=== PATIENT | male | born 1940 | race Caucasian/White ===

== ENCOUNTER 2022-01-03 09:04 | Emergency (ER) | payer OTHER, MEDICARE, BC ==
[~2022-01-03] VITALS: Ht 175.3 cm; Wt 78.0 kg
[2022-01-03 11:00] VITALS: BP 129/65
[2022-01-03] MEDS ORDERED: PROTONIX40 M2 PO (11:10)
[2022-01-03] MEDS ORDERED: KEPPRA1000 MG PO (11:10)
[2022-01-03] MEDS ORDERED: GABAPENTIN100 MG PO (11:10)
[2022-01-03] MEDS ORDERED: LASIX 20 MG TAB20 MG PO (11:11)
[2022-01-03] MEDS ORDERED: TAMSULOSIN HCL0.4 MG PO (11:11)
[2022-01-03] MEDS ORDERED: LIPITOR20 M1 PO (11:11)
[2022-01-03] MEDS ORDERED: STERAPRED DS10 MG PO (11:12)
[2022-01-03] MEDS ORDERED: CLOPIDOGREL75 MG PO (11:12)
[2022-01-03] MEDS ORDERED: POTASSIUM GLUC595 MG PO (11:12)
[2022-01-03] MEDS ORDERED: VITAMIN D325 MCG PO (11:13)
== END 2022-01-03 11:01 | disposition home or self-care (01) | DRG 179 ==
LOC: ED 09:04
DX: U07.1 COVID-19 (principal); I10 Essential (primary) hypertension

== ENCOUNTER 2022-01-07 10:06 | Emergency (ER) | payer OTHER, MEDICARE, BC ==
[~2022-01-07] VITALS: Ht 175.3 cm; Wt 90.0 kg
[~2022-01-07 10:06] MED LIST: CLOPIDOGREL75 MG PO; GABAPENTIN100 MG PO; KEPPRA1000 MG PO; LASIX 20 MG TAB20 MG PO; LIPITOR20 M1 PO; POTASSIUM GLUC595 MG PO; PROTONIX40 M2 PO; STERAPRED DS10 MG PO; TAMSULOSIN HCL0.4 MG PO; VITAMIN D325 MCG PO
[2022-01-07] MEDS ORDERED: ASPIRIN81 MG PO (10:42)
[2022-01-07 11:41] VITALS: BP 152/72
== END 2022-01-07 12:10 | disposition home or self-care (01) | DRG 605 ==
LOC: ED 10:06
DX: S81.811A Laceration without foreign body, right lower leg, initial encounter (principal); I10 Essential (primary) hypertension; G35 Multiple sclerosis; X58.XXXA Exposure to other specified factors, initial encounter

== ENCOUNTER 2022-03-29 16:25 | Observation (INO) | payer OTHER, MEDICARE, BC ==
[~2022-03-29] VITALS: Ht 175.3 cm; Wt 98.0 kg
[2022-03-29] VITALS (7 sets, daily range): BP systolic 102–164; BP diastolic 56–110
[~2022-03-29 16:25] MED LIST changes: +ASPIRIN81 MG PO
--- NOTE | 2022-03-29 17:34 | NUR ---
PATIENT TO ROOM 12
--- NOTE | 2022-03-29 18:28 | NUR ---
Reassessment of patient completed. No distress noted.
[2022-03-29 18:54] LABS: HEMATOCRIT 41.7 % (39.0-50.0); IMMATURE GRANULOCYTES 0.4 % (0.0-5.0); MEAN CELL VOLUME 95.2 fL CALC (80.0-100.0); MEAN CORPUSCULAR HGB 29.7 pG CALC (26.0-32.0); MEAN CORPUSCULAR HGB CONC 31.2 g/dL CAL (32.0-36.0); NEUT# 12.08 thou/uL (1.82-7.42); RED BLOOD COUNT 4.38 mill/uL (4.70-6.10); RED CELL DISTRI WIDTH 13.7 % (11.5-15.5)
--- NOTE | 2022-03-29 18:57 | NUR ---
TRANSITION OF CARE REPORT TO CHRIS ARAYA
[2022-03-29 18:59] LABS: ALBUMIN 3.7 g/dL (3.2-5.0); ALKALINE PHOSPHATASE 307 u/l (38-126); ANION GAP 10 (6-22 (CALC)); BILIRUBIN, TOTAL 1.1 mg/dL (0.0-1.4); BUN 16 mg/dL (8-23); BUN/CREATININE RATIO 18 (12-20 (CALC)); CARBON DIOXIDE 25 mmol/l (22-30); CHLORIDE 105 mmol/l (95-108); CREATININE 0.9 mg/dL (0.7-1.3); GFR > 60 ML/MIN (>=60 (CALC)); GFR FOR AFR.AMER. > 60 ML/MIN (>=60 (CALC)); SGOT/AST 59 u/l (19-48); SODIUM 137 mmol/l (137-146); TOTAL PROTEIN 6.7 g/dL (6.3-8.2)
[2022-03-29 19:21] LABS: URINE BILIRUBIN - DIPSTICK NEGATIVE (NEGATIVE); URINE BLOOD DIPSTICK SMALL (NEGATIVE); URINE COLOR YELLOW; URINE GLUCOSE - DIPSTICK NEGATIVE (NEGATIVE); URINE KETONE NEGATIVE (NEGATIVE); URINE LEUK ESTERASE MODERATE (NEGATIVE); URINE NITRITE - DIPSTICK POSITIVE (Negative); URINE PROTEIN - DIPSTICK TRACE mg/dL (NEG-TRACE); URINE SPECIFIC GRAVITY 1.025; URINE UROBILINOGEN - DIPSTICK 0.2 E.U./dL (0.2)
[2022-03-29 19:26] LABS: URINE BACTERIA MANY hpf; URINE WBC 20-50 WBC/hpf (0-5)
--- NOTE | 2022-03-29 20:55 | NUR ---
PT SPILLED URINE WHEN ATTEMPTING TO USE URINAL. ASSISTED PATIENT WITH CLOTHING CHANGE. SHEETS CHANGED ON STRETCHER. CALL LIGHT WITHIIN REACH
--- NOTE | 2022-03-29 21:57 | NUR ---
RN CALLED TO GIVE REPORT, NURSE UNAVAILABLE. WILL CALL BACK
--- NOTE | 2022-03-29 22:35 | NUR ---
PT ARRIVED TO ICU BED 4 VIA STRETCHER ACCOMPANIED BY ER NURSE, PT ALERT AND ORIENTED X3, ASSISTED SELF TO BED FROM STRETCHER, PT TOLERATED WELL. ORIENTED PT TO ROOM AND CALL LIGHT, DISCUSSED POC, PT VERBALIZED UNDERSTANDING. NOTED MUTIPLE BLISTERS AND BRUISING TO BUE AND BLE EXTREMITIES, SCABBED AREA TO HEAD PT STATES HE HIT HIS HEAD ON THE BUCKNER OF A VEHICLE HE WAS WORKING ON.+1 PITTING EDEMA TO BLE, PT HAS A HX OF SEIZURES, PRECAUTIONS IN PLACE. IV FLUSHED TO R WRIST. ADMISSION ASSESSMENT COMPLETED, CALL LIGHT IN REACH,CONTINUE TO MONITOR.
--- NOTE | 2022-03-29 23:44 | NUR ---
ASSISTED PT TO SIDE OF BED FOR URINAL, 50CC YELLOW CLOUDY URINE NOTED. PT ASSISTED BACK TO BED, CALL LIGHT IN REACH,CONTINUE TO MONITOR.
[2022-03-30] VITALS (7 sets, daily range): BP systolic 134–153; BP diastolic 50–70
--- NOTE | 2022-03-30 04:00 | NUR ---
PT ASSISTED TO STAND FOR URINAL, TOLERATED WELL.ASSISTED BACK TO BED, CALL LIGHT IN REACH,CONTINUE TO MONITOR.
[2022-03-30 04:46] LABS: HEMATOCRIT 38.1 % (39.0-50.0); HEMOGLOBIN 11.8 g/dl (14.0-18.0); MEAN CELL VOLUME 94.8 fL CALC (80.0-100.0); MEAN CORPUSCULAR HGB 29.4 pG CALC (26.0-32.0); RED BLOOD COUNT 4.02 mill/uL (4.70-6.10); RED CELL DISTRI WIDTH 13.8 % (11.5-15.5)
[2022-03-30 05:16] LABS: ANION GAP 9 (6-22 (CALC)); BUN 15 mg/dL (8-23); BUN/CREATININE RATIO 19 (12-20 (CALC)); CARBON DIOXIDE 25 mmol/l (22-30); CHLORIDE 108 mmol/l (95-108); CREATININE 0.8 mg/dL (0.7-1.3); GFR > 60 ML/MIN (>=60 (CALC)); GFR FOR AFR.AMER. > 60 ML/MIN (>=60 (CALC)); MAGNESIUM 1.7 mg/dL (1.6-2.3); POTASSIUM 3.7 mmol/l (3.5-5.1); SODIUM 137 mmol/l (137-146)
--- NOTE | 2022-03-30 07:20 | NUR ---
pt awake in bed; no apparent distress noted; pt offers no complaints; assessment completed at this time; pt alert to person and place; states May as the month; pt admits to some confusion lately; pt denies pain; no n/v noted per data analyst report writer; resp even and unlabored; lungs clear; skin color wnl; ra; hr reg; wk pedal pulses; edema noted to ble; sr/pvc on monitor; abd soft with bs present; no bm noted per data analyst report writer; pt voiding dk aly urine with trouble starting stream; urinal at bedside; pt does require assistance with urinal; #20 flushed and patent to rw; no redness or edema noted at site; discoloration noted to ble; multiple scabs/abrasions noted throughout body; multiple bandaids noted to lower legs; plan of care/ am meds explained; call light within reach; will continue to monitor
--- NOTE | 2022-03-30 08:00 | NUR ---
sitting at he side of the bed eating breakfast; offers no complaints; iv intact; will continue to monitor
--- NOTE | 2022-03-30 08:37 | NUR ---
assist to bsc; linens changed for small stool incont; partial bath provided; back to bed; will continue to monitor
--- NOTE | 2022-03-30 10:00 | NUR ---
pt resting in bed with eyes closed; no apparent distress noted; pt offers no complaints; iv intact; sr pvc on monitor; call light within reach; will continue to monitor
[2022-03-30] MEDS ORDERED: K-99 PO (10:01)
[2022-03-30] MEDS ORDERED: MULTI VIT PO (10:02)
[2022-03-30] MEDS ORDERED: ALLOPURINOL100 MG PO (10:03)
[2022-03-30] MEDS ORDERED: AMLODIPINE BES2.5 MG PO (10:03)
[2022-03-30] MEDS ORDERED: DOCUSATE CAL240 MG PO (10:03)
--- NOTE | 2022-03-30 10:50 | NUR ---
Dr Martinez present at bedside to assess pt and discuss plan of care;
--- NOTE | 2022-03-30 11:20 | NUR ---
jingle writer assisted this pt to bsc; able to void 75cc lay urine; bladder scanned for 205cc urine post void; notified
--- NOTE | 2022-03-30 12:00 | NUR ---
awake sitting at the side of the bed eating lunch; no apparent distress noted; pt offers no complaints; sr on monitor; iv intact; call light within reach; will continue to monitor
--- NOTE | 2022-03-30 12:29 | NUR ---
call placed to daughter Lisandra; daughter updated on pt condition and plan of care
--- NOTE | 2022-03-30 14:00 | NUR ---
awake in bed; offers no complaints; iv intact; sr on monitor; deny needs; call light within reach; will continue to monitor
--- NOTE | 2022-03-30 15:21 | NUR ---
assist to bsc; voided 75cc aly urine; bladder scanned for 281cc urine post void;
--- NOTE | 2022-03-30 16:00 | NUR ---
pt assisted to bsc for urine; voided approx 100cc aly urine; back to bed; offers no complaints; iv intact; sr on monitor; deny needs; call light within reach; will continue to monitor
--- NOTE | 2022-03-30 18:02 | NUR ---
pt awake conversing on cell phone; no apparent distress noted; pt offers no complaints; pt speaking wtih daughter Lisandra; both pt and daughter explained transfer to med surg this tonight; sr pvc on monitor; iv intact; call light within reach;
--- NOTE | 2022-03-30 18:48 | NUR ---
report to Yareli Rodriguez LPN; pt to transfer to [facility]; tele in room
--- NOTE | 2022-03-30 19:30 | NUR ---
PT BROUGHT TO MS2 VIA WHEELCHAIR BELONGINGS AND ROLLING WALKER. PT TOLERATED WELL, AMBULATED TO BED WITH STEADY GAIT, NO SIGNS OF DISTRESS NOTED, RESP EVEN AND UNLABORED. ORIENTED PT TO ROOM AND CALL LIGHT, VITALS OBTAINED. ASSESSMENT COMPLETED, NOTED DISCOLORATION TO EXTREMITIES, SCABS AND BANDAIDS NOTED TO BLE, +1 PITTING EDEMA TO BLE GREATER ON RIGHT. NOTED REDDENED 2ND TOE TO RIGHT FOOT SKIN INTACT. CALL LIGHT IN REACH,CONTINUE TO MONITOR.
--- NOTE | 2022-03-30 20:00 | NUR ---
PT ASSISTED TO STAND AT BEDSIDE TO USE URINAL, PT HAD 50CC OF RIAN URINE, BLADDER SCANNED ONCE BACK IN BED, PER BLADDER SCANNER PT RETAINED 97ML. NO C/O OF PAIN OR BLADDER DISTENTION NOTED. CALL LIGHT IN REACH,CONTINUE TO MONITOR.
--- NOTE | 2022-03-30 21:00 | NUR ---
PT ASSISTED TO STAND AT BEDSIDE FOR USE OF URINAL, PT HAD ANOTHER 50CC OF RIAN URINE, ONCE BACK IN BED PT BLADDER SCANNED, PER BLADDER SCANNER 30CC POST VOID RESIDUAL. PT VOICES NO NEEDS OR COMPLAINTS AT THIS TIME. CALL LIGHT IN REACH,CONTINUE TO MONITOR.
--- NOTE | 2022-03-31 | NUR ---
PT ASSISTED TO STAND FOR USE OF URINAL PT VOIDED 100CC OR RIAN URINE, BLADDER SCANNED POST VOID RESIDUAL 48ML, PT VOICES NO NEEDS OR COMPLAINTS AT THIS TIME, CALL LIGHT IN REACH,CONTINUE TO MONITOR.
[2022-03-31 00:27] VITALS: BP 128/49
--- NOTE | 2022-03-31 03:30 | NUR ---
PT AMBULATING IN ROOM WITH PERSONAL WALKER, PT VOIDED 100CC RIAN URINE, BLADDER SCANNED 0 ML. BED ALARM PLACED, CALL LIGHT IN REACH,CONTINUE TO MONITOR.
[2022-03-31 04:58] VITALS: BP 154/66
[2022-03-31 05:04] LABS: HEMATOCRIT 39.9 % (39.0-50.0); HEMOGLOBIN 12.2 g/dl (14.0-18.0); MEAN CELL VOLUME 97.6 fL CALC (80.0-100.0); MEAN CORPUSCULAR HGB 29.8 pG CALC (26.0-32.0); MEAN CORPUSCULAR HGB CONC 30.6 g/dL CAL (32.0-36.0); RED BLOOD COUNT 4.09 mill/uL (4.70-6.10); RED CELL DISTRI WIDTH 13.9 % (11.5-15.5)
[2022-03-31 05:26] LABS: BUN 16 mg/dL (8-23); BUN/CREATININE RATIO 21 (12-20 (CALC)); CARBON DIOXIDE 21 mmol/l (22-30); CHLORIDE 110 mmol/l (95-108); CREATININE 0.8 mg/dL (0.7-1.3); GFR > 60 ML/MIN (>=60 (CALC)); GFR FOR AFR.AMER. > 60 ML/MIN (>=60 (CALC)); MAGNESIUM 1.9 mg/dL (1.6-2.3); SODIUM 137 mmol/l (137-146)
[2022-03-31 05:27] LABS: ANION GAP 11 (6-22 (CALC)); POTASSIUM 4.8 mmol/l (3.5-5.1)
--- NOTE | 2022-03-31 07:30 | NUR ---
SHIFT CHANGE REPORT, PT AWAKE ALERT AND ORIENTED TO PLACE AND PERSON, SITTING UP IN RECLINER, NO C/O DISCOMFORT, TELE MONITOR IN PLACE, CALL GOEL IN REACH.
[2022-03-31 07:39] VITALS: BP 120/50
--- NOTE | 2022-03-31 10:40 | NUR ---
NEW #22G RFA STARTED, SITE PATENT. IV ABX INFUSING WITH EASE.
[2022-03-31 10:46] VITALS: BP 128/60
[2022-03-31] MEDS ORDERED: LEVOFLOXACIN250 M1 PO (11:41)
--- NOTE | 2022-03-31 14:02 | NUR ---
Discharge instructions given. Patient verbalizes understanding of same. Discharged in good condition via Wheelchair to Home with family. All belongings sent with pt.
== END 2022-03-31 14:02 | disposition home or self-care (01) | DRG 690 ==
LOC: ED 16:25 → ED-I 20:00 → ED 20:08 → ICU 20:09 → MS2 03-30 19:00
PROVIDERS: Nurse Practitioner; ADMIT Hospitalist; ATTEND Hospitalist
DX: N39.0 Urinary tract infection, site not specified (principal); L03.031 Cellulitis of right toe; I10 Essential (primary) hypertension; G35 Multiple sclerosis; N31.9 Neuromuscular dysfunction of bladder, unspecified; I73.9 Peripheral vascular disease, unspecified; S81.802A Unspecified open wound, left lower leg, initial encounter; S81.801A Unspecified open wound, right lower leg, initial encounter; B96.20 Unspecified Escherichia coli [E. coli] as the cause of diseases classified elsewhere; B96.5 Pseudomonas (aeruginosa) (mallei) (pseudomallei) as the cause of diseases classified elsewhere; X58.XXXA Exposure to other specified factors, initial encounter; Z20.822 Contact with and (suspected) exposure to COVID-19
CPT/HCPCS: G0378; J1650

== ENCOUNTER 2022-07-24 15:11 | Emergency (ER) | payer OTHER, MEDICARE ==
[~2022-07-24] VITALS: Ht 182.9 cm; Wt 86.0 kg
[~2022-07-24 15:11] MED LIST changes: +ALLOPURINOL100 MG PO; +AMLODIPINE BES2.5 MG PO; +DOCUSATE CAL240 MG PO; +K-99 PO; +LEVOFLOXACIN250 M1 PO; +MULTI VIT PO
[2022-07-24 15:15] VITALS: BP 128/66
[2022-07-24 17:31] VITALS: BP 150/77
[2022-07-24] MEDS ORDERED: MUPIROCIN21 TOP (17:52)
[2022-07-24 18:20] VITALS: BP 153/59
[2022-07-24 18:26] VITALS: BP 153/59
== END 2022-07-24 18:28 | disposition home or self-care (01) | DRG 536 ==
LOC: ED 15:11
DX: S32.592A Other specified fracture of left pubis, initial encounter for closed fracture (principal); S80.812A Abrasion, left lower leg, initial encounter; I10 Essential (primary) hypertension; G35 Multiple sclerosis; W01.0XXA Fall on same level from slipping, tripping and stumbling without subsequent striking against object, initial encounter; Y92.009 Unspecified place in unspecified non-institutional (private) residence as the place of occurrence of the external cause

== ENCOUNTER 2022-08-04 10:06 | Emergency (ER) | payer OTHER, MEDICARE ==
[~2022-08-04] VITALS: Ht 182.9 cm; Wt 91.2 kg
[2022-08-04] VITALS (15 sets, daily range): BP systolic 86–142; BP diastolic 42–76
[~2022-08-04 10:06] MED LIST changes: +MUPIROCIN21 TOP
[2022-08-04 10:53] LABS: HEMATOCRIT 36.7 % (39.0-50.0); HEMOGLOBIN 11.9 g/dl (14.0-18.0); IMMATURE GRANULOCYTES 0.2 % (0.0-5.0); MEAN CORPUSCULAR HGB 29.2 pG CALC (26.0-32.0); MEAN CORPUSCULAR HGB CONC 32.4 g/dL CAL (32.0-36.0); NEUT# 7.81 thou/uL (1.82-7.42); RED BLOOD COUNT 4.08 mill/uL (4.70-6.10); RED CELL DISTRI WIDTH 16.1 % (11.5-15.5)
[2022-08-04 11:14] LABS: ALBUMIN 3.3 g/dL (3.2-5.0); ALKALINE PHOSPHATASE 300 u/l (38-126); ANION GAP 12 (6-22 (CALC)); BILIRUBIN, TOTAL 0.7 mg/dL (0.0-1.4); BUN 20 mg/dL (8-23); BUN/CREATININE RATIO 24 (12-20 (CALC)); CARBON DIOXIDE 25 mmol/l (22-30); CHLORIDE 110 mmol/l (95-108); CREATININE 0.8 mg/dL (0.7-1.3); GFR FOR AFR.AMER. > 60 ML/MIN (>=60 (CALC)); GFR OTHER RACES > 60 ML/MIN (>=60 (CALC)); POTASSIUM 4.1 mmol/l (3.5-5.1); SGOT/AST 37 u/l (19-48); SODIUM 143 mmol/l (137-146); TOTAL PROTEIN 6.2 g/dL (6.3-8.2)
[2022-08-04] MEDS ORDERED: BACTRIM DS1 TAB PO ×2 (12:19→14:51)
[2022-08-04] MEDS ORDERED: CEPHALEXIN500 M1 PO ×2 (12:19→14:51)
[2022-08-04] MEDS ORDERED: TRAMADOL HYDROC50 M1 PO ×2 (12:21→14:51)
[2022-08-04] MEDS ORDERED: MUPIROCIN21 TOP (14:51)
== END 2022-08-04 14:04 | disposition home or self-care (01) | DRG 603 ==
LOC: ED 10:06
PROVIDERS: Family Medicine
DX: L03.116 Cellulitis of left lower limb (principal); S81.812A Laceration without foreign body, left lower leg, initial encounter; I10 Essential (primary) hypertension; E78.5 Hyperlipidemia, unspecified; G35 Multiple sclerosis; B95.2 Enterococcus as the cause of diseases classified elsewhere; B96.5 Pseudomonas (aeruginosa) (mallei) (pseudomallei) as the cause of diseases classified elsewhere; W19.XXXA Unspecified fall, initial encounter

== ENCOUNTER 2023-02-19 08:49 | Observation (INO) | payer OTHER, MEDICARE ==
[~2023-02-19] VITALS: Ht 182.9 cm; Wt 86.0 kg
[2023-02-19] VITALS (27 sets, daily range): BP systolic 100–263; BP diastolic 60–223
[~2023-02-19 08:49] MED LIST changes: +BACTRIM DS1 TAB PO; +CEPHALEXIN500 M1 PO; +TRAMADOL HYDROC50 M1 PO
[2023-02-19 12:56] LABS: BASO% 0.7 % (0-3); HEMATOCRIT 40.5 % (39.0-50.0); HEMOGLOBIN 12.6 g/dl (14.0-18.0); IMMATURE GRANULOCYTES 0.4 % (0.0-5.0); LYMPH% 24.3 % (15-41); MEAN CELL VOLUME 95.3 fL CALC (80.0-100.0); MEAN CORPUSCULAR HGB 29.6 pG CALC (26.0-32.0); MEAN CORPUSCULAR HGB CONC 31.1 g/dL CAL (32.0-36.0); MONO% 9.2 % (2-13); NEUT# 5.16 thou/uL (1.82-7.42); NEUT% 62.4 % (42-76); RED BLOOD COUNT 4.25 mill/uL (4.70-6.10); RED CELL DISTRI WIDTH 14.9 % (11.5-15.5)
[2023-02-19 13:12] LABS: ALBUMIN 3.9 g/dL (3.2-5.0); ALKALINE PHOSPHATASE 259 u/l (38-126); ANION GAP 11 (6-22 (CALC)); BILIRUBIN, TOTAL 0.6 mg/dL (0.2-1.3); BUN 20 mg/dL (8-23); BUN/CREATININE RATIO 27 (12-20 (CALC)); CARBON DIOXIDE 27 mmol/l (22-30); CHLORIDE 109 mmol/l (95-108); CREATININE 0.7 mg/dL (0.7-1.3); GFR FOR AFR.AMER. > 60 ML/MIN (>=60 (CALC)); GFR OTHER RACES > 60 ML/MIN (>=60 (CALC)); POTASSIUM 4.3 mmol/l (3.5-5.1); SGOT/AST 44 u/l (19-48); SODIUM 142 mmol/l (137-146); TOTAL PROTEIN 7.2 g/dL (6.3-8.2)
[2023-02-20 04:11] VITALS: BP 138/60
[2023-02-20 05:41] VITALS: BP 157/66
[2023-02-20 06:30] LABS: HEMATOCRIT 36.9 % (39.0-50.0); HEMOGLOBIN 11.7 g/dl (14.0-18.0); MEAN CELL VOLUME 93.7 fL CALC (80.0-100.0); MEAN CORPUSCULAR HGB 29.7 pG CALC (26.0-32.0); MEAN CORPUSCULAR HGB CONC 31.7 g/dL CAL (32.0-36.0); RED BLOOD COUNT 3.94 mill/uL (4.70-6.10); RED CELL DISTRI WIDTH 14.9 % (11.5-15.5)
[2023-02-20 06:37] LABS: ALBUMIN 3.4 g/dL (3.2-5.0); ALKALINE PHOSPHATASE 228 u/l (38-126); ANION GAP 12 (6-22 (CALC)); BILIRUBIN, TOTAL 0.4 mg/dL (0.2-1.3); BUN 16 mg/dL (8-23); BUN/CREATININE RATIO 23 (12-20 (CALC)); CARBON DIOXIDE 26 mmol/l (22-30); CHLORIDE 108 mmol/l (95-108); CREATININE 0.7 mg/dL (0.7-1.3); GFR FOR AFR.AMER. > 60 ML/MIN (>=60 (CALC)); GFR OTHER RACES > 60 ML/MIN (>=60 (CALC)); MAGNESIUM 1.9 mg/dL (1.6-2.3); SGOT/AST 40 u/l (19-48); SODIUM 142 mmol/l (137-146); TOTAL PROTEIN 6.3 g/dL (6.3-8.2)
[2023-02-20 09:41] VITALS: BP 140/62
[2023-02-20 11:20] LABS: URINE BILIRUBIN - DIPSTICK NEGATIVE (NEGATIVE); URINE BLOOD DIPSTICK NEGATIVE (NEGATIVE); URINE COLOR YELLOW; URINE GLUCOSE - DIPSTICK NEGATIVE (NEGATIVE); URINE KETONE TRACE mg/dL (NEGATIVE); URINE LEUK ESTERASE NEGATIVE (NEGATIVE); URINE PROTEIN - DIPSTICK NEGATIVE (NEG-TRACE); URINE UROBILINOGEN - DIPSTICK 0.2 E.U./dL (0.2)
[2023-02-20 11:25] LABS: URINE NITRITE - DIPSTICK NEGATIVE (Negative)
[2023-02-20 14:11] VITALS: BP 142/64
[2023-02-20 19:25] VITALS: BP 137/60
[2023-02-21] VITALS (9 sets, daily range): BP systolic 138–156; BP diastolic 63–73
[2023-02-21 05:46] LABS: BASO% 0.5 % (0-3); HEMATOCRIT 37.5 % (39.0-50.0); IMMATURE GRANULOCYTES 0.2 % (0.0-5.0); MEAN CELL VOLUME 94.2 fL CALC (80.0-100.0); MEAN CORPUSCULAR HGB 30.2 pG CALC (26.0-32.0); MONO% 11.4 % (2-13); NEUT# 4.94 thou/uL (1.82-7.42); NEUT% 59.9 % (42-76); RED BLOOD COUNT 3.98 mill/uL (4.70-6.10); RED CELL DISTRI WIDTH 14.7 % (11.5-15.5)
[2023-02-21 05:51] LABS: ALBUMIN 3.2 g/dL (3.2-5.0); ALKALINE PHOSPHATASE 225 u/l (38-126); ANION GAP 10 (6-22 (CALC)); BUN 13 mg/dL (8-23); BUN/CREATININE RATIO 21 (12-20 (CALC)); CARBON DIOXIDE 28 mmol/l (22-30); CHLORIDE 107 mmol/l (95-108); CREATININE 0.7 mg/dL (0.7-1.3); GFR FOR AFR.AMER. > 60 ML/MIN (>=60 (CALC)); GFR OTHER RACES > 60 ML/MIN (>=60 (CALC)); POTASSIUM 4.1 mmol/l (3.5-5.1); SGOT/AST 35 u/l (19-48); SODIUM 141 mmol/l (137-146); TOTAL PROTEIN 5.9 g/dL (6.3-8.2)
[2023-02-21 05:53] LABS: BILIRUBIN, TOTAL 0.6 mg/dL (0.2-1.3)
[2023-02-21 18:21] LABS: CALCULATED LDLCHOLESTEROL 63 mg/dL (62-129 (CALC)); CHOLESTEROL HDL RATIO 3.1 (<4.4 (CALC)); HDL CHOLESTEROL 38 mg/dL (39.0-59.0); TOTAL CHOLESTEROL 118 mg/dl (0-199); TRIGLYCERIDES REFLEX TO dLDL 87 mg/dl (30-149); VLDL CHOLESTROL 17 mg/dl (0-38 (CALC))
[2023-02-22 05:17] VITALS: BP 140/69
[2023-02-22 07:03] LABS: ALBUMIN 3.3 g/dL (3.2-5.0); ALKALINE PHOSPHATASE 229 u/l (38-126); ANION GAP 13 (6-22 (CALC)); BILIRUBIN, TOTAL 0.9 mg/dL (0.2-1.3); BUN 14 mg/dL (8-23); BUN/CREATININE RATIO 21 (12-20 (CALC)); CARBON DIOXIDE 23 mmol/l (22-30); CHLORIDE 109 mmol/l (95-108); CREATININE 0.6 mg/dL (0.7-1.3); GFR FOR AFR.AMER. > 60 ML/MIN (>=60 (CALC)); GFR OTHER RACES > 60 ML/MIN (>=60 (CALC)); POTASSIUM 4.1 mmol/l (3.5-5.1); SGOT/AST 37 u/l (19-48); SODIUM 141 mmol/l (137-146); TOTAL PROTEIN 6.2 g/dL (6.3-8.2)
[2023-02-22 07:07] LABS: BASO% 0.7 % (0-3); HEMOGLOBIN 12.2 g/dl (14.0-18.0); IMMATURE GRANULOCYTES 0.1 % (0.0-5.0); LYMPH% 20.2 % (15-41); MEAN CELL VOLUME 93.6 fL CALC (80.0-100.0); MEAN CORPUSCULAR HGB CONC 32.1 g/dL CAL (32.0-36.0); NEUT# 5.24 thou/uL (1.82-7.42); RED BLOOD COUNT 4.06 mill/uL (4.70-6.10); RED CELL DISTRI WIDTH 14.6 % (11.5-15.5)
[2023-02-22 09:14] VITALS: BP 143/66
== END 2023-02-22 19:30 | DRG 312 ==
LOC: ED 08:49 → ED-I 16:20 → ED 16:55 → MS2 16:56
PROVIDERS: Emergency Medicine; Nurse Practitioner Family; Psychiatry & Neurology Neurology; ADMIT Internal Medicine; ATTEND Internal Medicine
DX: I95.1 Orthostatic hypotension (principal); G81.94 Hemiplegia, unspecified affecting left nondominant side; R42 Dizziness and giddiness; E86.1 Hypovolemia; G35 Multiple sclerosis; I10 Essential (primary) hypertension; G40.909 Epilepsy, unspecified, not intractable, without status epilepticus; T50.996A Underdosing of other drugs, medicaments and biological substances, initial encounter; Z91.128 Patient's intentional underdosing of medication regimen for other reason; Z20.822 Contact with and (suspected) exposure to COVID-19
CPT/HCPCS: J1650; Q9967

== ENCOUNTER 2023-11-19 16:46 | Inpatient (IN) | payer OTHER, MEDICARE ==
[~2023-11-19] VITALS: Ht 182.9 cm; Wt 87.4 kg
[2023-11-19] VITALS (19 sets, daily range): BP systolic 87–121; BP diastolic 59–84
[~2023-11-19 16:46] MED LIST changes: +KEFLEX500 MG PO; +LEVAQUIN750 M1 PO; +MIRALAX17 GM PO; +PROSCAR5 MG PO; +RISPERDAL0.5 MG PO; +TOPROL XL25 MG PO; +TOPROL XL50 MG PO; +XARELTO10 MG PO; +[UNRECOGNIZED DRUG - OTHER] TOP
[2023-11-19 17:19] LABS: BASO% 0.5 % (0-3); EOS% 2.9 % (0-8); HEMATOCRIT 39.8 % (39.0-50.0); HEMOGLOBIN 11.9 g/dl (14.0-18.0); IMMATURE GRANULOCYTES 0.3 % (0.0-5.0); LYMPH% 26.2 % (15-41); MEAN CELL VOLUME 92.3 fL CALC (80.0-100.0); MEAN CORPUSCULAR HGB 27.6 pG CALC (26.0-32.0); MEAN CORPUSCULAR HGB CONC 29.9 g/dL CAL (32.0-36.0); MONO% 13.2 % (2-13); NEUT# 3.7 thou/uL (1.82-7.42); NEUT% 56.9 % (42-76); RED BLOOD COUNT 4.31 mill/uL (4.70-6.10); RED CELL DISTRI WIDTH 15.8 % (11.5-15.5)
[2023-11-19 17:26] LABS: PROTHROMBIN TIME 16.3 SECONDS (9.0-12.5)
[2023-11-19 17:31] LABS: INTERNATIONAL NORMALIZED RATIO 1.8 RATIO (0.7-1.3)
[2023-11-19 17:53] LABS: ALBUMIN 3.2 g/dL (3.2-5.0); ALKALINE PHOSPHATASE 150 u/l (38-126); ANION GAP 16 (6-22 (CALC)); BILIRUBIN, TOTAL 0.8 mg/dL (0.2-1.3); BUN 37 mg/dL (8-23); BUN/CREATININE RATIO 36 (12-20 (CALC)); CHLORIDE 116 mmol/l (95-108); GFR FOR AFR.AMER. > 60 ML/MIN (>=60 (CALC)); GFR OTHER RACES > 60 ML/MIN (>=60 (CALC)); POTASSIUM 3.8 mmol/l (3.5-5.1); SGOT/AST 45 u/l (19-48); SODIUM 149 mmol/l (137-146); TOTAL PROTEIN 6.1 g/dL (6.3-8.2)
[2023-11-19 17:55] LABS: CARBON DIOXIDE 21 mmol/l (22-30)
[2023-11-19] MEDS ORDERED: IPRATROPIU0.5 MG/3 M IN (18:28)
[2023-11-20] VITALS (60 sets, daily range): BP systolic 36–148; BP diastolic 21–129
[2023-11-20 08:01] LABS: BASO% 0.3 % (0-3); HEMATOCRIT 38.5 % (39.0-50.0); HEMOGLOBIN 11.7 g/dl (14.0-18.0); IMMATURE GRANULOCYTES 0.3 % (0.0-5.0); LYMPH% 17.9 % (15-41); MEAN CELL VOLUME 92.5 fL CALC (80.0-100.0); MEAN CORPUSCULAR HGB 28.1 pG CALC (26.0-32.0); MEAN CORPUSCULAR HGB CONC 30.4 g/dL CAL (32.0-36.0); MONO% 1.8 % (2-13); NEUT# 2.68 thou/uL (1.82-7.42); NEUT% 79.7 % (42-76); RED BLOOD COUNT 4.16 mill/uL (4.70-6.10); RED CELL DISTRI WIDTH 15.9 % (11.5-15.5)
[2023-11-20 08:10] LABS: ALBUMIN 3.1 g/dL (3.2-5.0); ALKALINE PHOSPHATASE 148 u/l (38-126); ANION GAP 19 (6-22 (CALC)); BILIRUBIN, TOTAL 1.1 mg/dL (0.2-1.3); BUN 39 mg/dL (8-23); BUN/CREATININE RATIO 31 (12-20 (CALC)); CHLORIDE 118 mmol/l (95-108); CREATININE 1.2 mg/dL (0.7-1.3); GFR FOR AFR.AMER. > 60 ML/MIN (>=60 (CALC)); GFR OTHER RACES 58 ML/MIN (>=60 (CALC)); MAGNESIUM 1.8 mg/dL (1.6-2.3); POTASSIUM 4.1 mmol/l (3.5-5.1); SGOT/AST 55 u/l (19-48); SODIUM 148 mmol/l (137-146)
[2023-11-20 08:19] LABS: CARBON DIOXIDE 15 mmol/l (22-30)
[2023-11-21] VITALS (51 sets, daily range): BP systolic 75–113; BP diastolic 45–76
[2023-11-21 05:45] LABS: BASO% 0.3 % (0-3); HEMATOCRIT 37.1 % (39.0-50.0); HEMOGLOBIN 11.1 g/dl (14.0-18.0); IMMATURE GRANULOCYTES 0.1 % (0.0-5.0); LYMPH% 7.5 % (15-41); MEAN CORPUSCULAR HGB 27.8 pG CALC (26.0-32.0); MEAN CORPUSCULAR HGB CONC 29.9 g/dL CAL (32.0-36.0); MONO% 4.4 % (2-13); NEUT# 6.71 thou/uL (1.82-7.42); NEUT% 87.7 % (42-76); RED BLOOD COUNT 3.99 mill/uL (4.70-6.10); RED CELL DISTRI WIDTH 16.1 % (11.5-15.5)
[2023-11-21 05:55] LABS: ALBUMIN 2.8 g/dL (3.2-5.0); CREATININE 1.6 mg/dL (0.7-1.3); POTASSIUM 3.8 mmol/l (3.5-5.1); TOTAL PROTEIN 5.3 g/dL (6.3-8.2)
[2023-11-21 18:11] LABS: BASO% 0.1 % (0-3); HEMATOCRIT 36.1 % (39.0-50.0); HEMOGLOBIN 10.8 g/dl (14.0-18.0); IMMATURE GRANULOCYTES 0.4 % (0.0-5.0); LYMPH% 6.9 % (15-41); MEAN CELL VOLUME 91.6 fL CALC (80.0-100.0); MEAN CORPUSCULAR HGB 27.4 pG CALC (26.0-32.0); MEAN CORPUSCULAR HGB CONC 29.9 g/dL CAL (32.0-36.0); MONO% 5.2 % (2-13); NEUT# 8.55 thou/uL (1.82-7.42); NEUT% 87.4 % (42-76); RED BLOOD COUNT 3.94 mill/uL (4.70-6.10); RED CELL DISTRI WIDTH 16.1 % (11.5-15.5)
[2023-11-22] VITALS (15 sets, daily range): BP systolic 77–104; BP diastolic 50–78
[2023-11-22 07:32] LABS: BASO% 0.3 % (0-3); HEMATOCRIT 37.7 % (39.0-50.0); HEMOGLOBIN 11.4 g/dl (14.0-18.0); IMMATURE GRANULOCYTES 0.7 % (0.0-5.0); LYMPH% 7.2 % (15-41); MEAN CELL VOLUME 91.7 fL CALC (80.0-100.0); MEAN CORPUSCULAR HGB 27.7 pG CALC (26.0-32.0); MEAN CORPUSCULAR HGB CONC 30.2 g/dL CAL (32.0-36.0); MONO% 5.2 % (2-13); NEUT# 9.92 thou/uL (1.82-7.42); NEUT% 86.6 % (42-76); RED BLOOD COUNT 4.11 mill/uL (4.70-6.10); RED CELL DISTRI WIDTH 15.9 % (11.5-15.5)
[2023-11-22 09:37] LABS: ALBUMIN 2.9 g/dL (3.2-5.0); BILIRUBIN, TOTAL 1.2 mg/dL (0.2-1.3); CREATININE 2.1 mg/dL (0.7-1.3); TOTAL PROTEIN 5.5 g/dL (6.3-8.2)
== END 2023-11-22 13:16 | disposition hospice, inpatient (51) | DRG 871 ==
LOC: ED 16:46 → MS2 18:50 → ICU 18:50 → MS2 18:50 → ICU 11-20 05:41
PROVIDERS: Emergency Medicine; ADMIT Student in an Organized Health Care Education/Training Program; ATTEND Student in an Organized Health Care Education/Training Program
DX: A41.9 Sepsis, unspecified organism (principal); I50.23 Acute on chronic systolic (congestive) heart failure; R65.21 Severe sepsis with septic shock; J18.9 Pneumonia, unspecified organism; E87.20 Acidosis, unspecified; J44.0 Chronic obstructive pulmonary disease with (acute) lower respiratory infection; N17.9 Acute kidney failure, unspecified; E87.0 Hyperosmolality and hypernatremia; I95.9 Hypotension, unspecified; I11.0 Hypertensive heart disease with heart failure; I48.91 Unspecified atrial fibrillation; G35 Multiple sclerosis; F03.90 Unspecified dementia, unspecified severity, without behavioral disturbance, psychotic disturbance, mood disturbance, and anxiety; Z86.73 Personal history of transient ischemic attack (TIA), and cerebral infarction without residual deficits; N40.0 Benign prostatic hyperplasia without lower urinary tract symptoms; R56.9 Unspecified convulsions; Z51.5 Encounter for palliative care; Z66 Do not resuscitate; R09.02 Hypoxemia; Z79.01 Long term (current) use of anticoagulants; I34.0 Nonrheumatic mitral (valve) insufficiency; R68.0 Hypothermia, not associated with low environmental temperature
CPT/HCPCS: J0692; J1650